=== PATIENT | female | born 1955 | race Caucasian/White ===

== ENCOUNTER → 2017-10-11 | Outpatient (CLI) | payer OTHER ==
[~2017-10-11] MED LIST: TYLENOL325 M1 PO
[2017-10-11 16:38] VITALS: BP 121/59; BP 126/62
== END ==
LOC: OPONC 14:39
DX: C25.0 Malignant neoplasm of head of pancreas (principal); K62.5 Hemorrhage of anus and rectum; R89.9 Unspecified abnormal finding in specimens from other organs, systems and tissues
CPT/HCPCS: 91030